=== PATIENT | female | born 1990 | race Caucasian/White ===

== ENCOUNTER 2021-05-09 08:22 | Emergency (ER) | payer SELFPAY ==
--- OUTSIDE RECORDS SUMMARY | 2021-05-09 08:40 | XMS REPORT | Continuity of Care Document ---
:1990 Author Organization [facility] t Address [address] [place] [address] [address] [place] [address] Care Team Providers Name Role Phone Ryan RICHARDSON, Asad Attending Clinician Problems This patient has no known problems. Allergies, Adverse Reactions, Alerts This patient has no known allergies or adverse reactions. Medications This patient has no known medications. Procedures This patient has no known procedures. Encounters Start End Encounter Admission Attending Care Care Encounter Source Date/Time Date/Time Type Type Clinicians Facility Department ID 2020-08-17 2020-08-17 Office Maggie Davis NMALEXA [id number] 10:31:05 11:24:46 Visit Asad Whelan [id number] Deisy [id number] Cristi [id number] formerly [facility] [address] [facility] Results This patient has no known results.
[2021-05-09 08:59] LABS: Absolute Lymphocytes (CBC) 0.9 K/uL (0.7-4.9); Basophils % 0.6 % (0-1.3); Lymphocytes % 14.3 % (15.3-44.8); MPV 7.8 fL (7.6-11.3); RBC Red Blood Cell Count 3.91 M/uL (3.86-4.86)
[2021-05-09] MEDS ORDERED: NA CHLORIDE 0.9% 1,000 ML ONE (09:16)
[2021-05-09] MEDS ORDERED: MORPHINE 4 MG/ML SYR ONE (09:16)
[2021-05-09] MEDS ORDERED: ONDANSETRON 4 MG/2 ML VIAL ONE ×2 (09:16→13:27)
[2021-05-09] MEDS ORDERED: FAMOTIDINE 20 MG/2 ML VIAL IV ONE (09:17)
[2021-05-09] MEDS ORDERED: METRONIDAZOLE 500mg IVPB 500 MG/100 ML BAG IV ONE (09:17)
[2021-05-09] MEDS ORDERED: CIPROFLOXACIN 400mg IV 400 MG/200 ML BAG IV ONE (09:17)
[2021-05-09 09:28] LABS: ALT/SGPT 19 U/L (12-78); AST/SGOT 12 U/L (15-37); Alkaline Phosphatase 65 U/L (45-117); BUN Blood Urea Nitrogen 9 mg/dL (7-18); Bicarbonate 27 mmol/L (21-32); Bilirubin Direct < 0.1 mg/dL (0-0.2); Bilirubin Total 0.2 mg/dL (0.2-1.0); Glucose Level 110 mg/dL (74-106); Lipase 82 U/L (73-393); Potassium 4.3 mmol/L (3.5-5.1); Protein, Total 7.3 g/dL (6.4-8.2); Sodium Level 136 mmol/L (136-145)
--- NOTE | 2021-05-09 09:32 | RAD REPORT ---
EXAM DESCRIPTION: CT - Abdomen Pelvis W Contrast - 05/09/2021 9:22 am CLINICAL HISTORY: ABD PAIN COMPARISON: No comparisons TECHNIQUE: Biphasic, helical CT imaging of the abdomen and pelvis was performed following 100 ml non -ionic IV contrast. No oral contrast administered. All CT scans are performed using dose optimization technique as appropriate and may include automated exposure control or mA/KV adjustment according to patient size. FINDINGS: No suspicious findings in the lung bases. The liver, spleen, and pancreas show no suspicious findings. Gallbladder and biliary tree are also wi thout suspicious finding. Symmetric renal function is seen with no hydronephrosis or suspicious renal mass. No pyelonephritis o r acute parenchymal process. No bladder abnormalities. No adrenal abnormalities. Uterus and ovaries s how no suspicious findings. IUD is in place well positioned. No dilated bowel loops or bowel wall thickening. Appendix is normal. No free air, free fluid or infla mmatory stranding. No hernia, mass or bulky lymphadenopathy. No suspicious bony findings. IMPRESSION: Contrast enhanced CT abdomen and pelvis showing no significant or suspicious finding.
[2021-05-09 11:13] LABS: Urine Blood Negative (Negative); Urine Glucose Negative (Negative); Urine Protein Negative (Negative); Urine pH 8.5 (5.0-7.0)
--- NOTE | 2021-05-09 11:25 | ER ---
Nurse's Notes [facility] Name: Lynnette Vazquez Age: 30 yrs Sex: Female : 1990 Arrival Date: 05/09/2021 Time: 08:24 Bed 5 Private MD: Diagnosis: Abdominal tenderness-LEFT SIDE;Diarrhea, unspecified Presentation: 05/09 08:36 Chief complaint: Patient states: Left sided abdominal pain since Sunday night, also ph reports nausea and diarrhea, denies vomiting or fever. Coronavirus screen: Client denies travel out of the [place] in the last 14 days. At this time, the client does not indicate any symptoms associated with coronavirus-19. Ebola Screen: No symptoms or risks identified at this time. Initial Sepsis Screen: Does the patient meet any 2 criteria? No. Patient's initial sepsis screen is negative. Does the patient have a suspected source of infection? No. Patient's initial sepsis screen is negative. Risk Assessment: Do you want to hurt yourself or someone else? Patient reports no desire to harm self or others. Onset of symptoms was May 09, 2021. 08:36 Method Of Arrival: Ambulatory ph 08:36 Acuity: EMMANUEL 3 ph Historical: - Allergies: 08:38 No Known Allergies; ph - Home Meds: 08:38 None [Active]; ph - PMHx: 08:38 None; ph - PSHx: 08:38 None; ph - Immunization history:: Client reports having NOT received the Covid vaccine. - Social history:: Smoking status: Patient denies any tobacco usage or history of. - Family history:: not pertinent. Screenin:39 Abuse screen: Denies threats or abuse. Denies injuries from another. Nutritional ph screening: No deficits noted. Tuberculosis screening: No symptoms or risk factors identified. Fall Risk None identified. Assessment: 08:40 General: Appears in no apparent distress. uncomfortable, Behavior is calm, cooperative, ph appropriate for age. Pain: Complains of pain in left upper quadrant and left lower quadrant. Neuro: Level of Consciousness is awake, alert, obeys commands, Oriented to person, place, time, situation. Cardiovascular: Capillary refill < 3 seconds in bilateral fingers Patient's skin is warm and dry. Respiratory: Airway is patent Respiratory effort is even, unlabored. GI: Abdomen is non-distended, Bowel sounds present X 4 quads. Abdomen is tender to palpation in left upper quadrant and left lower quadrant Reports lower abdominal pain, upper abdominal pain, diarrhea, nausea, Patient currently denies vomiting. : No signs and/or symptoms were reported regarding the genitourinary system. Derm: Skin is intact, is healthy with good turgor, Skin is pink, warm \T\ dry. Musculoskeletal: Circulation, motion, and sensation intact. Range of motion: intact in all extremities. 10:00 Reassessment: Patient appears in no apparent distress at this time. Patient and/or ph family updated on plan of care and expected duration. Pain level reassessed. Patient is alert, oriented x 3, equal unlabored respirations, skin warm/dry/pink. 11:15 Reassessment: Patient appears in no apparent distress at this time. Patient and/or ph family updated on plan of care and expected duration. Pain level reassessed. Patient is alert, oriented x 3, equal unlabored respirations, skin warm/dry/pink. Pt continues to c/o pain, ERP notified, awaiting further orders. 12:32 Reassessment: Patient appears in no apparent distress at this time. Patient and/or ph family updated on plan of care and expected duration. Pain level reassessed. Patient is alert, oriented x 3, equal unlabored respirations, skin warm/dry/pink. Pt medicated for pain, see MAR, awaiting completion of IV antibiotics, pt encouraged to keep arm straight. Vital Signs: 08:36 BP 108 / 78; Pulse 69; Resp 18; Temp 97.8; Pulse Ox 100% on R/A; Weight 81.65 kg; ph Height 5 ft. 5 in. (165.10 cm); Pain 8/10; 09:00 BP 118 / 80; Pulse 57; Resp 18; Pulse Ox 100% ; kg 10:00 BP 118 / 81; Pulse 92; Resp 18; Pulse Ox 98% ; ph 11:00 BP 112 / 70; Pulse 62; Resp 16; Pulse Ox 100% on R/A; ph 12:34 BP 118 / 76; Pulse 60; Resp 18; Pulse Ox 98% on R/A; ph 08:36 Body Mass Index 29.95 (81.65 kg, 165.10 cm) ED Course: 08:24 Patient arrived in ED. rg4 08:33 Alfie Gilliam MD is Attending Physician. ernesto 08:36 Jesusita Guidry, RN is Primary Nurse. ph 08:38 Triage completed. ph 08:38 Arm band placed on Patient placed in an exam room, on a stretcher. ph 08:39 Patient has correct armband on for positive identification. Placed in gown. Bed in low ph position. Call light in reach. Side rails up X 1. Pulse ox on. NIBP on. Door closed. Noise minimized. Warm blanket given. 09:23 CT Abd/Pelvis - IV Contrast Only In Process Unspecified. EDMS 11:24 Oscar Hood MD is Referral Physician. ernesto 13:18 No provider procedures requiring assistance completed. IV discontinued, intact, iw bleeding controlled, No redness/swelling at site. Pressure dressing applied. Administered Medications: 09:03 Drug: NS 0.9% 1000 ml Route: IV; Rate: 1 bolus; Site: right antecubital; ph 12:00 Follow up: Response: No adverse reaction; IV Status: Completed infusion; IV Intake: ph 1000ml 09:03 Drug: Zofran (Ondansetron) 4 mg Route: IVP; Site: right antecubital; ph 09:10 Follow up: Response: No adverse reaction ph 09:05 Drug: morphine 4 mg Route: IVP; Site: right antecubital; ph 09:30 Follow up: Response: No adverse reaction ph 09:06 Drug: Pepcid (famotidine) 20 mg Route: IVP; Site: right antecubital; ph 09:15 Follow up: Response: No adverse reaction ph 09:10 Drug: Cipro (ciprofloxacin) 400 mg Volume: 200 ml; Route: IVPB; Infused Over: 60 mins; ph Site: right antecubital; 10:25 Follow up: Response: No adverse reaction; IV Status: Completed infusion; IV Intake: ph 200ml 10:30 Drug: Flagyl (metroNIDAZOLE) 500 mg Volume: 100 ml; Route: IVPB; Rate: 200 ml/hr; ph Infused Over: 30 mins; Site: right antecubital; 12:00 Follow up: Response: No adverse reaction; IV Status: Completed infusion ph 12:11 Not Given (Other Intervention Used): NS 0.9% 1000 ml IV at 1 bolus Per protocol; 1000 ph mL bolus 12:30 Drug: Ketorolac 30 mg Route: IVP; Site: right antecubital; ph 13:00 Follow up: Response: No adverse reaction; Pain is decreased ph 13:09 Drug: Zofran (Ondansetron) 4 mg Route: IVP; Site: right antecubital; kg 13:15 Follow up: Response: No adverse reaction ph Intake: 10:25 IV: 200ml; Total: 200ml. ph 12:00 IV: 1000ml; Total: 1200ml. ph Outcome: 11:24 Discharge ordered by . ernesto 13:18 Patient left the ED. iw 13:18 Discharged to home ambulatory, with family. iw 13:18 Condition: good 13:18 Discharge instructions given to patient, Instructed on discharge instructions, follow up and referral plans. medication usage, Demonstrated understanding of instructions, follow-up care, medications, Prescriptions given X 3. Signatures: Dispatcher [employer] EDMS Alfie Gilliam MD MD cha Williams, Irene, RN RN iw Jesusita Guidry RN RN Becki Payne 4 Jolene Valenzuela RN RN kg Corrections: (The following items were deleted from the chart) 10:23 10:00 BP 118 / 1; Pulse 92bpm; Resp 18bpm; Pulse Ox 98%; kg ph
--- NOTE | 2021-05-09 11:25 | EDPHYS ---
Physician Documentation [facility] Name: Lynnette Vazquez Age: 30 yrs Sex: Female : 1990 Arrival Date: 05/09/2021 Time: 08:24 Bed 5 Private MD: ED Physician Alfie Gilliam HPI: 05/09 08:44 This 30 yrs old Female presents to ER via Ambulatory with complaints of ernesto Abdominal Pain. 08:44 The patient presents with abdominal pain in the left upper quadrant, in the left lower ernesto quadrant, abdominal distention in the upper abdomen, in the lower abdomen. Onset: The symptoms/episode began/occurred 2 day(s) ago. The symptoms do not radiate. Associated signs and symptoms: Pertinent positives: diarrhea. The symptoms are described as constant, crampy. Modifying factors: The symptoms are alleviated by nothing, the symptoms are aggravated by nothing. Severity of pain: At its worst the pain was moderate in the emergency department the pain is unchanged. The patient has not experienced similar symptoms in the past. Historical: - Allergies: 08:38 No Known Allergies; ph - Home Meds: 08:38 None [Active]; ph - PMHx: 08:38 None; ph - PSHx: 08:38 None; ph - Immunization history:: Client reports having NOT received the Covid vaccine. - Social history:: Smoking status: Patient denies any tobacco usage or history of. - Family history:: not pertinent. ROS: 08:44 Constitutional: Negative for fever, chills, and weight loss, Eyes: Negative for injury, ernesto pain, redness, and discharge, ENT: Negative for injury, pain, and discharge, Neck: Negative for injury, pain, and swelling, Cardiovascular: Negative for chest pain, palpitations, and edema, Respiratory: Negative for shortness of breath, cough, wheezing, and pleuritic chest pain, Back: Negative for injury and pain, : Negative for injury, bleeding, discharge, and swelling, MS/Extremity: Negative for injury and deformity, Skin: Negative for injury, rash, and discoloration, Neuro: Negative for headache, weakness, numbness, tingling, and seizure, Psych: Negative for depression, anxiety, suicide ideation, homicidal ideation, and hallucinations, Allergy/Immunology: Negative for hives, rash, and allergies, Endocrine: Negative for neck swelling, polydipsia, polyuria, polyphagia, and marked weight changes, Hematologic/Lymphatic: Negative for swollen nodes, abnormal bleeding, and unusual bruising. 08:44 Abdomen/GI: Positive for abdominal pain, diarrhea, of the left upper quadrant and left lower quadrant. Exam: 08:44 Constitutional: This is a well developed, well nourished patient who is awake, alert, ernesto and in no acute distress. Head/Face: Normocephalic, atraumatic. Eyes: Pupils equal round and reactive to light, extra-ocular motions intact. Lids and lashes normal. Conjunctiva and sclera are non-icteric and not injected. Cornea within normal limits. Periorbital areas with no swelling, redness, or edema. ENT: Nares patent. No nasal discharge, no septal abnormalities noted. Tympanic membranes are normal and external auditory canals are clear. Oropharynx with no redness, swelling, or masses, exudates, or evidence of obstruction, uvula midline. Mucous membranes moist. Neck: Trachea midline, no thyromegaly or masses palpated, and no cervical lymphadenopathy. Supple, full range of motion without nuchal rigidity, or vertebral point tenderness. No Meningismus. Chest/axilla: Normal chest wall appearance and motion. Nontender with no deformity. No lesions are appreciated. Cardiovascular: Regular rate and rhythm with a normal S1 and S2. No gallops, murmurs, or rubs. Normal PMI, no JVD. No pulse deficits. Respiratory: Lungs have equal breath sounds bilaterally, clear to auscultation and percussion. No rales, rhonchi or wheezes noted. No increased work of breathing, no retractions or nasal flaring. Back: No spinal tenderness. No costovertebral tenderness. Full range of motion. Skin: Warm, dry with normal turgor. Normal color with no rashes, no lesions, and no evidence of cellulitis. MS/ Extremity: Pulses equal, no cyanosis. Neurovascular intact. Full, normal range of motion. Neuro: Awake and alert, GCS 15, oriented to person, place, time, and situation. Cranial nerves II-XII grossly intact. Motor strength 5/5 in all extremities. Sensory grossly intact. Cerebellar exam normal. Normal gait. Psych: Awake, alert, with orientation to person, place and time. Behavior, mood, and affect are within normal limits. 08:44 Abdomen/GI: Inspection: abdomen appears normal, Bowel sounds: normal, in the left upper quadrant and left lower quadrant, Palpation: moderate abdominal tenderness, in the left upper quadrant and left lower quadrant, Liver: no appreciated palpable abnormalities, Hernia: not appreciated. Vital Signs: 08:36 BP 108 / 78; Pulse 69; Resp 18; Temp 97.8; Pulse Ox 100% on R/A; Weight 81.65 kg; ph Height 5 ft. 5 in. (165.10 cm); Pain 8/10; 09:00 BP 118 / 80; Pulse 57; Resp 18; Pulse Ox 100% ; kg 10:00 BP 118 / 81; Pulse 92; Resp 18; Pulse Ox 98% ; ph 11:00 BP 112 / 70; Pulse 62; Resp 16; Pulse Ox 100% on R/A; ph 12:34 BP 118 / 76; Pulse 60; Resp 18; Pulse Ox 98% on R/A; ph 08:36 Body Mass Index 29.95 (81.65 kg, 165.10 cm) ph MDM: 08:33 Patient medically screened. ernesto 08:46 Differential diagnosis: bowel obstruction, diverticulitis, Dysmenorrhea, gastritis, ernesto Menorrhagia, non-specific abd pain, pancreatitis, Peptic Ulcer Disease, Peritonitis, Ureterolithiasis, urinary tract infection. Data reviewed: vital signs, nurses notes, lab test result(s), radiologic studies, CT scan. Data interpreted: cardiac monitor: not applicable for this patient encounter. rate is 69 beats/min, rhythm is regular, Pulse oximetry: on room air is 100 %. Counseling: I had a detailed discussion with the patient and/or guardian regarding: the historical points, exam findings, and any diagnostic results supporting the discharge/admit diagnosis, lab results, radiology results. 05/09 08:40 Order name: Basic Metabolic Panel; Complete Time: 09:30 ernesto 05/09 08:40 Order name: CBC with Diff; Complete Time: 09:[address] [facility] 05/09 08:40 Order name: Hepatic Function; Complete Time: 09:[address] [facility] 05/09 08:40 Order name: Lipase; Complete Time: 09:[address] [facility] 05/09 08:40 Order name: Urine Culture [facility] 05/09 09:31 Order name: Test, Serum [facility] 05/09 08:40 Order name: CT Abd/Pelvis - IV Contrast Only; Complete Time: 10:38 ernesto 05/09 11:13 Order name: Urine Dipstick-Ancillary; Complete Time: 11:24 EDMS 05/09 11:16 Order name: Urine --Ancillary (enter results); Complete Time: 12:21 bd 05/09 08:40 Order name: IV Saline Lock; Complete Time: 09:[address] [facility] 05/09 08:40 Order name: Labs collected and sent; Complete Time: 09:07 ernesto 05/09 08:40 Order name: Urine Dipstick-Ancillary (obtain specimen); Complete Time: 12:[address] [facility] 05/09 08:40 Order name: Urine Test (obtain specimen); Complete Time: 12:[address] [facility] 05/09 10:39 Order name: Misc. Order: get UA PLEASE; Complete Time: 10:44 ernesto Administered Medications: 09:03 Drug: NS 0.9% 1000 ml Route: IV; Rate: 1 bolus; Site: right antecubital; ph 12:00 Follow up: Response: No adverse reaction; IV Status: Completed infusion; IV Intake: ph 1000ml 09:03 Drug: Zofran (Ondansetron) 4 mg Route: IVP; Site: right antecubital; ph 09:10 Follow up: Response: No adverse reaction ph 09:05 Drug: morphine 4 mg Route: IVP; Site: right antecubital; ph 09:30 Follow up: Response: No adverse reaction ph 09:06 Drug: Pepcid (famotidine) 20 mg Route: IVP; Site: right antecubital; ph 09:15 Follow up: Response: No adverse reaction ph 09:10 Drug: Cipro (ciprofloxacin) 400 mg Volume: 200 ml; Route: IVPB; Infused Over: 60 mins; ph Site: right antecubital; 10:25 Follow up: Response: No adverse reaction; IV Status: Completed infusion; IV Intake: ph 200ml 10:30 Drug: Flagyl (metroNIDAZOLE) 500 mg Volume: 100 ml; Route: IVPB; Rate: 200 ml/hr; ph Infused Over: 30 mins; Site: right antecubital; 12:00 Follow up: Response: No adverse reaction; IV Status: Completed infusion ph 12:11 Not Given (Other Intervention Used): NS 0.9% 1000 ml IV at 1 bolus Per protocol; 1000 ph mL bolus 12:30 Drug: Ketorolac 30 mg Route: IVP; Site: right antecubital; ph 13:00 Follow up: Response: No adverse reaction; Pain is decreased ph 13:09 Drug: Zofran (Ondansetron) 4 mg Route: IVP; Site: right antecubital; kg 13:15 Follow up: Response: No adverse reaction ph Disposition Summary: 05/09/21 11:24 Discharge Ordered Location: Home [facility] Problem: new [facility] Symptoms: have improved [facility] Condition: Stable [facility] Diagnosis - Abdominal tenderness - LEFT SIDE ernesto - Diarrhea, unspecified ernesto Followup: ernesto - With: Private Physician - When: 2 - 3 days - Reason: Recheck today's complaints, Continuance of care, Re-evaluation by your physician Followup: ernesto - With: - When: 2 - 3 days - Reason: Recheck today's complaints, Continuance of care, Re-evaluation by your physician Discharge Instructions: - Discharge Summary Sheet ernesto - Abdominal Pain, Adult ernesto - Abdominal Pain, Adult, [id number] ernesto - Diarrhea, Adult ernesto - Diarrhea, Adult, [id number] [facility] Forms: - Medication Reconciliation Form [facility] - Thank You Letter [facility] - Antibiotic Education [facility] - Prescription Opioid Use [facility] Prescriptions: - Ibuprofen 600 mg Oral Tablet - take 1 tablet by ORAL route every 6 hours As needed take with food; 20 tablet; [facility] Refills: 0, Product Selection Permitted - Zofran 4 mg Oral Tablet - take 1 tablet by ORAL route every 12 hours As needed; 20 tablet; Refills: 0, [facility] Product Selection Permitted - Cipro 500 mg Oral Tablet - take 1 tablet by ORAL route every 12 hours for 5 days; 10 tablet; Refills: 0, [facility] Product Selection Permitted - dicyclomine 20 mg Oral Tablet - take 1 tablet by ORAL route 4 times per day; 20 tablet; Refills: 0, Product [facility] Selection Permitted Signatures: Dispatcher [employer] Alfie Crisostomo MD MD cha Hall, Patricia RN RN ph Jolene Valenzuela RN RN kg Corrections: (The following items were deleted from the chart) 13:04 09:31 Test Serum, Qual[employer] ordered. EDMO EDMS
[2021-05-09] MEDS ORDERED: KETOROLAC 30 MG/ML INJ ONE (12:47)
[2021-05-09 13:25] VITALS: TEMP 97.8
[2021-05-09 13:30] VITALS: BP 118/76; O2SAT 98
== END 2021-05-09 13:18 | disposition home or self-care (01) ==
LOC: ER 08:22
DX: R19.7 Diarrhea, unspecified (principal)
CPT/HCPCS: 36415; 74177; 80048; 80076; 81003; 81025; 82565; 83690; 85025; 87086; 87088; 96365; 96366; 96367; 96375; 99284; J0744; J2405; J7030; Q9967

== ENCOUNTER → 2023-09-12 | Day surgery (SDC) | payer OTHER ==
--- NOTE | 2023-09-12 13:24 | RAD REPORT ---
EXAM DESCRIPTION: US - Extremity Nonvascular Limited - 09/12/2023 10:54 am CLINICAL HISTORY: R22.1, H92.09 COMPARISON: Extremity Nonvascular Complete dated 08/21/2023 FINDINGS: Preoperative diagnosis: Right neck mass. Conscious Sedation: None Fluoroscopy time: None Contrast used: None Estimated blood loss: Less than 5 mL. Specimens:None The patient presented for a biopsy of a right neck mass measuring 2.6 cm in greatest dimension. Upon initial scanning, under was a definitive plane between the mass and the carotid vessel. Therefore, th e possibility of this mass representing a paraganglioma was considered minimal. Risks and benefits we re discussed with the patient. Informed consent was obtained. The area was prepped and draped in the usual sterile fashion. Real-time sonographic scanning revealed the ovoid mass, today measured up to 3 .0 x 2.0 cm, without significant internal vascularity. 1% lidocaine was infiltrated into the subcutan eous and deep tissues for local anesthesia, during which the patient experienced significant pain. A small skin kassidy was performed. There was more significant pain experienced by the patient, when numbi ng the deeper tissues and around the mass. At this point, it was agreed to not proceed further with a biopsy, given the degree of pain. Needle was withdrawn, area was cleaned and dressing was applied. T here were no complications. IMPRESSION: Right lateral neck as above. Decision was made not to proceed with the biopsy at this ti me, given the severe degree of pain experienced by the patient. Surgical referral for excision is rec ommended.
== END ==
LOC: FNA 09:25
PROVIDERS: ATTEND Nurse Practitioner Family
DX: R22.1 Localized swelling, mass and lump, neck (principal); H92.09 Otalgia, unspecified ear; Z53.9 Procedure and treatment not carried out, unspecified reason
CPT/HCPCS: 76882

== ENCOUNTER 2024-09-03 08:09 | Emergency (ER) | payer OTHER, SELFPAY ==
--- NOTE | 2024-09-03 08:28 | ER ---
Nurse's Notes [facility] Name: Lynnette Vazquez Age: 34 yrs Sex: Female : 1990 Arrival Date: 09/03/2024 Time: 08:09 Bed 20 Private MD: Diagnosis: Rash and other nonspecific skin eruption Presentation: 09/03 08:24 Chief complaint: Patient states: Rash to arms and legs since yesterday morning. No ll1 fever. Coronavirus screen: Client denies travel out of the [place] in the last 14 days. At this time, the client does not indicate any symptoms associated with coronavirus-19. Ebola Screen: Patient denies travel to an Ebola-affected area in the 21 days before illness onset. Initial Sepsis Screen: Does the patient meet any 2 criteria? No. Patient's initial sepsis screen is negative. Does the patient have a suspected source of infection? No. Patient's initial sepsis screen is negative. Risk Assessment: Do you want to hurt yourself or someone else? Patient reports no desire to harm self or others. Onset of symptoms was September 02, 2024. 08:24 Method Of Arrival: Ambulatory ll1 08:24 Acuity: EMMANUEL 4 ll1 Triage Assessment: 08:24 General: Appears in no apparent distress. Behavior is calm, cooperative, appropriate ll1 for age. Pain: Denies pain. Neuro: No deficits noted. Derm: Rash noted that is itchy, red, fine red rash to all extremities Reports rash to all extremities. 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 - Infectious Disease History:: Denies. - Social history:: Smoking status: Patient denies any tobacco usage or history of. - Family history:: not pertinent. - Hospitalizations: : No recent hospitalization is reported. Screenin:26 [facility] ED Fall Risk Assessment (Adult) History of falling in the last 3 months, ll1 including since admission No falls in past 3 months (0 pts) Confusion or Disorientation No (0 pts) Intoxicated or Sedated No (0 pts) Impaired Gait No (0 pts) Mobility Assist Device Used No (0 pt) Altered Elimination No (0 pt) Score/Fall Risk Level 0 - 2 = Low Risk Maintained a safe environment, Hourly rounding (assess needs \T\ fall precautionary measures) done. Abuse screen: Denies threats or abuse. Nutritional screening: No deficits noted. Tuberculosis screening: No symptoms or risk factors identified. Assessment: 08:55 Reassessment: No changes from previously documented assessment. Patient and/or family ll1 updated on plan of care and expected duration. Pain level reassessed. Patient is alert, oriented x 3, equal unlabored respirations, skin warm/dry/pink. 09:26 Reassessment: No changes from previously documented assessment. Patient and/or family ll1 updated on plan of care and expected duration. Pain level reassessed. Patient is alert, oriented x 3, equal unlabored respirations, skin warm/dry/pink. Vital Signs: 08:24 BP 111 / 87; Pulse 82; Resp 17; Temp 97; Pulse Ox 98% on R/A; Weight 86.18 kg; Height 5 ll1 ft. 5 in. ; Pain 0/10; 08:24 Body Mass Index 31.62 (86.18 kg, 165.1 cm) ll1 08:24 Pain Scale: Adult ll1 ED Course: 08:12 Patient arrived in ED. ra3 08:12 Hammad Marcelo MD is Attending Physician. rn 08:19 Arm band placed on. ll1 08:25 Triage completed. ll1 09:26 Patient has correct armband on for positive identification. Provided Education on: ll1 finish prescribed antibiotics. 09:26 No provider procedures requiring assistance completed. Patient did not have IV access ll1 during this emergency room visit. Administered Medications: :55 Drug: MethylPREDNISolone Sodium Succinate IM 125 mg IM once Route: IM; Site: left ll1 vastus lateralis; 09:12 Follow up: Response: No adverse reaction ll1 Medication: 09:26 VIS not applicable for this client. ll1 Outcome: :28 Discharge ordered by . rn 09:26 Patient left the ED. ll1 09:26 Discharged to home ambulatory, ll1 09:26 Condition: stable :26 Discharge instructions given to patient, Instructed on discharge instructions, follow up and referral plans. medication usage, Demonstrated understanding of instructions, follow-up care, medications, Prescriptions given X 2, Signatures: Hammad Marcelo MD MD rn Dante, ALEENA Carbone RN 1 Janelle Brito 3
--- NOTE | 2024-09-03 08:28 | EDPHYS ---
Physician Documentation [facility] Name: Lynnette Vazquez Age: 34 yrs Sex: Female : 1990 Arrival Date: 09/03/2024 Time: 08:09 Bed 20 Private MD: ED Physician Hammad Marcelo HPI: 09/03 08:24 This 34 yrs old Female presents to ER via Unassigned with complaints of Rash - BL leg rn and arm. 08:25 The patient's rash thought to be caused by an unknown cause. The rash is located on the rn right arm, left arm, right leg and left leg. Onset: The symptoms/episode began/occurred yesterday. Associated signs and symptoms: Pertinent positives: itching, Pertinent negatives: fever. Severity of symptoms: At their worst the symptoms were mild in the emergency department the symptoms are unchanged. The patient has not experienced similar symptoms in the past. Patient reports rash to bilateral arms and legs. Has not been outside. Reports itching to rash. No redness. No fever. Is a fine rash. No travel.. 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 - Infectious Disease History:: Denies. - Social history:: Smoking status: Patient denies any tobacco usage or history of. - Family history:: not pertinent. - Hospitalizations: : No recent hospitalization is reported. ROS: 08:25 Constitutional: Negative for fever, chills, and weight loss, Skin: Positive for rash rn and itching Exam: 08:25 Constitutional: This is a well developed, well nourished patient who is awake, alert, rn and in no acute distress. Skin: Warm, dry, fine bumpy rash to bilateral lower extremities and flexor surfaces of arms. No bullae. No desquamation. No pustules. Not on palms. Vital Signs: 08:24 BP 111 / 87; Pulse 82; Resp 17; Temp 97; Pulse Ox 98% on R/A; Weight 86.18 kg; Height 5 ll1 ft. 5 in. ; Pain 0/10; 08:24 Body Mass Index 31.62 (86.18 kg, 165.1 cm) ll1 08:24 Pain Scale: Adult ll1 MDM: 08:12 Medical Screening Exam initiated rn 08:25 Differential diagnosis: rash. Data reviewed: vital signs, nurses notes, and as a rn result, I will discharge patient. Counseling: I had a detailed discussion with the patient and/or guardian regarding the historical points, exam findings, and any diagnostic results supporting the discharge/admit diagnosis, the need for outpatient follow up, to return to the emergency department if symptoms worsen or persist or if there are any questions or concerns that arise at home. Special discussion: I discussed with the patient/guardian in detail that at this point there is no indication for admission to the hospital. It is understood, however, that if the symptoms persist or worsen the patient needs to return immediately for re-evaluation. Administered Medications: 08:55 Drug: MethylPREDNISolone Sodium Succinate IM 125 mg IM once Route: IM; Site: left ll1 vastus lateralis; 09:12 Follow up: Response: No adverse reaction ll1 Disposition Summary: 09/03/24 08:28 Discharge Ordered Notes: Location: Home rn Problem: new rn Symptoms: are unchanged rn Condition: Stable rn Diagnosis - Rash and other nonspecific skin eruption rn Followup: rn - With: Private Physician - When: As needed - Reason: Recheck today's complaints, Re-evaluation by your physician Discharge Instructions: - Discharge Summary Sheet rn - Rash, Adult rn Forms: - Medication Reconciliation Form rn - Antibiotic deputy prosecuting attorney - Prescription Opioid Use rn - Patient Portal Instructions rn - Leadership Thank You Letter rn Prescriptions: - prednisolone 15 mg/5 mL Oral solution - take 20 milliliter ORAL route once daily for 5 days with food; 100 milliliter; rn Refills: 0, Product Selection Permitted - sulfamethoxazole-trimethoprim 200-40 mg/5 mL Oral suspension - take 20 milliliter ORAL route every 12 hours for 10 days; 400 milliliter; rn Refills: 0, Product Selection Permitted Signatures: Hammad Marcelo MD MD rn Lewis, Lynsay, RN RN ll1
[2024-09-03] MEDS ORDERED: METHYLPREDNISOLONE 125 MG INJ ONE (08:52)
[2024-09-03 09:55] VITALS: BP 111/87; TEMP 97; O2SAT 98
== END 2024-09-03 09:26 | disposition home or self-care (01) ==
LOC: ER 08:09
DX: R21 Rash and other nonspecific skin eruption (principal)
CPT/HCPCS: 96372; 99284; J2919